=== PATIENT | male | born 1940 | race Caucasian/White ===

== ENCOUNTER → 2017-08-14 | Outpatient (CLI) | payer MEDICARE ==
[~2017-08-14] VITALS: Ht 160 cm; Wt 70.0 kg
[~2017-08-14] MED LIST: ASPI-891 PO; BIOT10004 PO; DABI150 PO; DONE10TA8 PO; FERSL PO; FLUO-191 PO; FURO20 PO; HYDR-3709 PO; INTRATHECAL PUMP IL; METO25 PO; MULT-1203 PO; OMEP20 PO; PHEN100C23 PO; SIMV-261 PO; SULF1TAB42 PO; VITAD1000 PO; ZINC30TA2 PO
[2017-08-14 10:54] VITALS: BP 128/63
== END | disposition home or self-care (01) ==
LOC: HBOWC 09:55
PROVIDERS: ATTEND Internal Medicine
DX: S81.801D Unspecified open wound, right lower leg, subsequent encounter (principal); I87.2 Venous insufficiency (chronic) (peripheral); F03.90 Unspecified dementia, unspecified severity, without behavioral disturbance, psychotic disturbance, mood disturbance, and anxiety; E11.22 Type 2 diabetes mellitus with diabetic chronic kidney disease; I12.9 Hypertensive chronic kidney disease with stage 1 through stage 4 chronic kidney disease, or unspecified chronic kidney disease; N18.2 Chronic kidney disease, stage 2 (mild); F32.9 Major depressive disorder, single episode, unspecified; E11.51 Type 2 diabetes mellitus with diabetic peripheral angiopathy without gangrene; Z87.891 Personal history of nicotine dependence; Z96.653 Presence of artificial knee joint, bilateral; Z95.0 Presence of cardiac pacemaker; X58.XXXD Exposure to other specified factors, subsequent encounter
CPT/HCPCS: 97597; 97598

== ENCOUNTER → 2017-08-21 | Outpatient (CLI) | payer MEDICARE ==
[~2017-08-21] MED LIST changes: +CIPR-278 PO; +DOXY100C PO
[2017-08-21 10:54] VITALS: BP 145/59
== END | disposition home or self-care (01) ==
LOC: HBOWC 10:15
PROVIDERS: ATTEND Internal Medicine
DX: S81.801D Unspecified open wound, right lower leg, subsequent encounter (principal); E11.22 Type 2 diabetes mellitus with diabetic chronic kidney disease; N18.4 Chronic kidney disease, stage 4 (severe); I12.9 Hypertensive chronic kidney disease with stage 1 through stage 4 chronic kidney disease, or unspecified chronic kidney disease; F32.9 Major depressive disorder, single episode, unspecified; E11.51 Type 2 diabetes mellitus with diabetic peripheral angiopathy without gangrene; F03.90 Unspecified dementia, unspecified severity, without behavioral disturbance, psychotic disturbance, mood disturbance, and anxiety; E44.0 Moderate protein-calorie malnutrition; I87.8 Other specified disorders of veins; Z87.891 Personal history of nicotine dependence; Z96.653 Presence of artificial knee joint, bilateral; Z95.0 Presence of cardiac pacemaker; X58.XXXD Exposure to other specified factors, subsequent encounter
CPT/HCPCS: 11042

== ENCOUNTER → 2017-08-28 | Outpatient (CLI) | payer MEDICARE ==
[~2017-08-28] MED LIST changes: +LIDOCAINE HCL 2% 5 ML JELLY TP ONE
[2017-08-28 10:21] VITALS: BP 125/57
== END | disposition home or self-care (01) ==
LOC: HBOWC 09:27
PROVIDERS: ATTEND Internal Medicine
DX: S81.801D Unspecified open wound, right lower leg, subsequent encounter (principal); F03.90 Unspecified dementia, unspecified severity, without behavioral disturbance, psychotic disturbance, mood disturbance, and anxiety; I87.2 Venous insufficiency (chronic) (peripheral); F32.9 Major depressive disorder, single episode, unspecified; E11.51 Type 2 diabetes mellitus with diabetic peripheral angiopathy without gangrene; E11.22 Type 2 diabetes mellitus with diabetic chronic kidney disease; I12.9 Hypertensive chronic kidney disease with stage 1 through stage 4 chronic kidney disease, or unspecified chronic kidney disease; N18.4 Chronic kidney disease, stage 4 (severe); Z87.891 Personal history of nicotine dependence; Z96.653 Presence of artificial knee joint, bilateral; Z99.2 Dependence on renal dialysis; X58.XXXD Exposure to other specified factors, subsequent encounter
CPT/HCPCS: 97597; 97598

== ENCOUNTER → 2017-09-04 | Outpatient (CLI) | payer MEDICARE ==
[~2017-09-04] MED LIST changes: -CIPR-278 PO; -DOXY100C PO; -LIDOCAINE HCL 2% 5 ML JELLY TP ONE; +LIDOCAINE HCL 4% 50 ML SOLUTION TP ONE; +SODIUM HYPOCHLORITE 0.25% [HALF STRENGTH] 473 ML SOLUTION TP ONE
[2017-09-04 13:40] VITALS: BP 126/54
== END | disposition home or self-care (01) ==
LOC: HBOWC 09:51
PROVIDERS: ATTEND Internal Medicine
DX: S81.801D Unspecified open wound, right lower leg, subsequent encounter (principal); E11.51 Type 2 diabetes mellitus with diabetic peripheral angiopathy without gangrene; E11.22 Type 2 diabetes mellitus with diabetic chronic kidney disease; I12.9 Hypertensive chronic kidney disease with stage 1 through stage 4 chronic kidney disease, or unspecified chronic kidney disease; N18.4 Chronic kidney disease, stage 4 (severe); I87.2 Venous insufficiency (chronic) (peripheral); F32.9 Major depressive disorder, single episode, unspecified; F03.90 Unspecified dementia, unspecified severity, without behavioral disturbance, psychotic disturbance, mood disturbance, and anxiety; Z87.891 Personal history of nicotine dependence; Z96.653 Presence of artificial knee joint, bilateral; Z99.2 Dependence on renal dialysis; X58.XXXD Exposure to other specified factors, subsequent encounter
CPT/HCPCS: 11042; 97597; 97598

== ENCOUNTER → 2017-09-18 | Outpatient (CLI) | payer MEDICARE ==
[~2017-09-18] MED LIST changes: +CIPR-278 PO; +DOXY100C PO; -SODIUM HYPOCHLORITE 0.25% [HALF STRENGTH] 473 ML SOLUTION TP ONE
[2017-09-18 09:31] VITALS: BP 126/73
== END | disposition home or self-care (01) ==
LOC: HBOWC 08:43
PROVIDERS: ATTEND Internal Medicine
DX: S81.801D Unspecified open wound, right lower leg, subsequent encounter (principal); S01.302D Unspecified open wound of left ear, subsequent encounter; E11.22 Type 2 diabetes mellitus with diabetic chronic kidney disease; I12.9 Hypertensive chronic kidney disease with stage 1 through stage 4 chronic kidney disease, or unspecified chronic kidney disease; N18.4 Chronic kidney disease, stage 4 (severe); F32.9 Major depressive disorder, single episode, unspecified; E11.51 Type 2 diabetes mellitus with diabetic peripheral angiopathy without gangrene; F03.90 Unspecified dementia, unspecified severity, without behavioral disturbance, psychotic disturbance, mood disturbance, and anxiety; I87.2 Venous insufficiency (chronic) (peripheral); Z87.891 Personal history of nicotine dependence; Z96.653 Presence of artificial knee joint, bilateral; Z99.2 Dependence on renal dialysis; X58.XXXD Exposure to other specified factors, subsequent encounter
CPT/HCPCS: 87070; 87205; 97597; 97598

== ENCOUNTER → 2017-09-25 | Outpatient (CLI) | payer MEDICARE ==
[~2017-09-25] MED LIST changes: -SULF1TAB42 PO
[2017-09-25 11:00] VITALS: BP 120/61
== END | disposition home or self-care (01) ==
LOC: HBOWC 10:18
PROVIDERS: ATTEND Internal Medicine
DX: S81.801D Unspecified open wound, right lower leg, subsequent encounter (principal); S01.302D Unspecified open wound of left ear, subsequent encounter; E11.22 Type 2 diabetes mellitus with diabetic chronic kidney disease; I12.9 Hypertensive chronic kidney disease with stage 1 through stage 4 chronic kidney disease, or unspecified chronic kidney disease; N18.4 Chronic kidney disease, stage 4 (severe); F32.9 Major depressive disorder, single episode, unspecified; E11.51 Type 2 diabetes mellitus with diabetic peripheral angiopathy without gangrene; F03.90 Unspecified dementia, unspecified severity, without behavioral disturbance, psychotic disturbance, mood disturbance, and anxiety; I87.2 Venous insufficiency (chronic) (peripheral); Z87.891 Personal history of nicotine dependence; Z96.653 Presence of artificial knee joint, bilateral; Z99.2 Dependence on renal dialysis; X58.XXXD Exposure to other specified factors, subsequent encounter
CPT/HCPCS: 97597; 97598

== ENCOUNTER → 2017-10-02 | Outpatient (CLI) | payer MEDICARE ==
[~2017-10-02] MED LIST changes: -LIDOCAINE HCL 4% 50 ML SOLUTION TP ONE
[2017-10-02 10:43] VITALS: BP 144/58
== END | disposition home or self-care (01) ==
LOC: HBOWC 10:03
PROVIDERS: ATTEND Internal Medicine
DX: S81.801D Unspecified open wound, right lower leg, subsequent encounter (principal); S01.302D Unspecified open wound of left ear, subsequent encounter; E11.22 Type 2 diabetes mellitus with diabetic chronic kidney disease; I12.9 Hypertensive chronic kidney disease with stage 1 through stage 4 chronic kidney disease, or unspecified chronic kidney disease; N18.4 Chronic kidney disease, stage 4 (severe); F32.9 Major depressive disorder, single episode, unspecified; E11.51 Type 2 diabetes mellitus with diabetic peripheral angiopathy without gangrene; F03.90 Unspecified dementia, unspecified severity, without behavioral disturbance, psychotic disturbance, mood disturbance, and anxiety; I87.2 Venous insufficiency (chronic) (peripheral); Z87.891 Personal history of nicotine dependence; Z96.653 Presence of artificial knee joint, bilateral; Z99.2 Dependence on renal dialysis; X58.XXXD Exposure to other specified factors, subsequent encounter
CPT/HCPCS: 97597

== ENCOUNTER → 2017-10-30 | Outpatient (CLI) | payer MEDICARE ==
[~2017-10-30] MED LIST changes: +AMOX1TAB16 PO; +AZIT500T4 PO; +CLOP75 PO; +LIDOCAINE HCL 4% 50 ML SOLUTION TP ONE
[2017-10-30 09:59] VITALS: BP 141/63
== END | disposition home or self-care (01) ==
LOC: HBOWC 09:41
PROVIDERS: ATTEND Internal Medicine
DX: S81.801D Unspecified open wound, right lower leg, subsequent encounter (principal); E11.22 Type 2 diabetes mellitus with diabetic chronic kidney disease; I12.9 Hypertensive chronic kidney disease with stage 1 through stage 4 chronic kidney disease, or unspecified chronic kidney disease; N18.4 Chronic kidney disease, stage 4 (severe); F32.9 Major depressive disorder, single episode, unspecified; E11.51 Type 2 diabetes mellitus with diabetic peripheral angiopathy without gangrene; F03.90 Unspecified dementia, unspecified severity, without behavioral disturbance, psychotic disturbance, mood disturbance, and anxiety; I87.2 Venous insufficiency (chronic) (peripheral); Z87.891 Personal history of nicotine dependence; Z96.653 Presence of artificial knee joint, bilateral; Z99.2 Dependence on renal dialysis; X58.XXXD Exposure to other specified factors, subsequent encounter
CPT/HCPCS: 11042; 11045

== ENCOUNTER → 2017-11-06 | Outpatient (CLI) | payer MEDICARE ==
[~2017-11-06] MED LIST changes: -ASPI-891 PO; -CIPR-278 PO; -DOXY100C PO; +LIDOCAINE HCL 2% 5 ML JELLY TP ONE; -LIDOCAINE HCL 4% 50 ML SOLUTION TP ONE
[2017-11-06 10:23] VITALS: BP 116/75
== END | disposition home or self-care (01) ==
LOC: HBOWC 09:59
PROVIDERS: ATTEND Internal Medicine
DX: S81.801D Unspecified open wound, right lower leg, subsequent encounter (principal); S01.302D Unspecified open wound of left ear, subsequent encounter; E11.22 Type 2 diabetes mellitus with diabetic chronic kidney disease; I12.9 Hypertensive chronic kidney disease with stage 1 through stage 4 chronic kidney disease, or unspecified chronic kidney disease; N18.4 Chronic kidney disease, stage 4 (severe); F32.9 Major depressive disorder, single episode, unspecified; E11.51 Type 2 diabetes mellitus with diabetic peripheral angiopathy without gangrene; F03.90 Unspecified dementia, unspecified severity, without behavioral disturbance, psychotic disturbance, mood disturbance, and anxiety; I87.2 Venous insufficiency (chronic) (peripheral); Z87.891 Personal history of nicotine dependence; Z96.653 Presence of artificial knee joint, bilateral; Z99.2 Dependence on renal dialysis; X58.XXXD Exposure to other specified factors, subsequent encounter
CPT/HCPCS: 11042; 11045

== ENCOUNTER → 2017-11-13 | Outpatient (CLI) | payer MEDICARE ==
[~2017-11-13] MED LIST changes: -LIDOCAINE HCL 2% 5 ML JELLY TP ONE
[2017-11-13 10:18] VITALS: BP 132/61
== END | disposition home or self-care (01) ==
LOC: HBOWC 09:53
PROVIDERS: ATTEND Internal Medicine
DX: S81.801D Unspecified open wound, right lower leg, subsequent encounter (principal); S01.302D Unspecified open wound of left ear, subsequent encounter; E11.22 Type 2 diabetes mellitus with diabetic chronic kidney disease; I12.9 Hypertensive chronic kidney disease with stage 1 through stage 4 chronic kidney disease, or unspecified chronic kidney disease; N18.4 Chronic kidney disease, stage 4 (severe); F32.9 Major depressive disorder, single episode, unspecified; E11.51 Type 2 diabetes mellitus with diabetic peripheral angiopathy without gangrene; F03.90 Unspecified dementia, unspecified severity, without behavioral disturbance, psychotic disturbance, mood disturbance, and anxiety; I87.2 Venous insufficiency (chronic) (peripheral); Z87.891 Personal history of nicotine dependence; Z96.653 Presence of artificial knee joint, bilateral; Z99.2 Dependence on renal dialysis; X58.XXXD Exposure to other specified factors, subsequent encounter
CPT/HCPCS: 11042; 11045

== ENCOUNTER → 2017-11-20 | Outpatient (CLI) | payer MEDICARE ==
[~2017-11-20] MED LIST changes: +LIDOCAINE HCL 2% 5 ML JELLY TP ONE
[2017-11-20 10:10] VITALS: BP 123/55
== END | disposition home or self-care (01) ==
LOC: HBOWC 09:59
PROVIDERS: ATTEND Internal Medicine
DX: S81.801D Unspecified open wound, right lower leg, subsequent encounter (principal); S01.302D Unspecified open wound of left ear, subsequent encounter; E11.22 Type 2 diabetes mellitus with diabetic chronic kidney disease; I12.9 Hypertensive chronic kidney disease with stage 1 through stage 4 chronic kidney disease, or unspecified chronic kidney disease; N18.4 Chronic kidney disease, stage 4 (severe); F32.9 Major depressive disorder, single episode, unspecified; E11.51 Type 2 diabetes mellitus with diabetic peripheral angiopathy without gangrene; F03.90 Unspecified dementia, unspecified severity, without behavioral disturbance, psychotic disturbance, mood disturbance, and anxiety; I87.2 Venous insufficiency (chronic) (peripheral); Z87.891 Personal history of nicotine dependence; Z96.653 Presence of artificial knee joint, bilateral; Z99.2 Dependence on renal dialysis; X58.XXXD Exposure to other specified factors, subsequent encounter
CPT/HCPCS: 11042

== ENCOUNTER → 2017-12-04 | Outpatient (CLI) | payer MEDICARE ==
[~2017-12-04] MED LIST changes: -LIDOCAINE HCL 2% 5 ML JELLY TP ONE
[2017-12-04 10:15] VITALS: BP 133/60
== END | disposition home or self-care (01) ==
LOC: HBOWC 10:04
PROVIDERS: ATTEND Podiatrist
DX: S81.801D Unspecified open wound, right lower leg, subsequent encounter (principal); E11.22 Type 2 diabetes mellitus with diabetic chronic kidney disease; I12.9 Hypertensive chronic kidney disease with stage 1 through stage 4 chronic kidney disease, or unspecified chronic kidney disease; N18.4 Chronic kidney disease, stage 4 (severe); F32.9 Major depressive disorder, single episode, unspecified; E11.51 Type 2 diabetes mellitus with diabetic peripheral angiopathy without gangrene; F03.90 Unspecified dementia, unspecified severity, without behavioral disturbance, psychotic disturbance, mood disturbance, and anxiety; I87.2 Venous insufficiency (chronic) (peripheral); Z87.891 Personal history of nicotine dependence; Z96.653 Presence of artificial knee joint, bilateral; Z99.2 Dependence on renal dialysis; X58.XXXD Exposure to other specified factors, subsequent encounter
CPT/HCPCS: 11042

== ENCOUNTER → 2017-12-25 | Outpatient (CLI) | payer MEDICARE ==
[~2017-12-25] MED LIST changes: -AMOX1TAB16 PO; -AZIT500T4 PO
[2017-12-25 10:16] VITALS: BP 145/63
== END | disposition home or self-care (01) ==
LOC: HBOWC 10:04
PROVIDERS: ATTEND Internal Medicine
DX: S81.801D Unspecified open wound, right lower leg, subsequent encounter (principal); E11.22 Type 2 diabetes mellitus with diabetic chronic kidney disease; I12.9 Hypertensive chronic kidney disease with stage 1 through stage 4 chronic kidney disease, or unspecified chronic kidney disease; N18.4 Chronic kidney disease, stage 4 (severe); F32.9 Major depressive disorder, single episode, unspecified; E11.51 Type 2 diabetes mellitus with diabetic peripheral angiopathy without gangrene; F03.90 Unspecified dementia, unspecified severity, without behavioral disturbance, psychotic disturbance, mood disturbance, and anxiety; I87.2 Venous insufficiency (chronic) (peripheral); Z87.891 Personal history of nicotine dependence; Z96.653 Presence of artificial knee joint, bilateral; Z99.2 Dependence on renal dialysis; X58.XXXD Exposure to other specified factors, subsequent encounter

== ENCOUNTER → 2018-01-15 | Outpatient (CLI) | payer MEDICARE ==
[2018-01-15 10:44] VITALS: BP 105/56
== END | disposition home or self-care (01) ==
LOC: HBOWC 09:58
PROVIDERS: ATTEND Internal Medicine
DX: S81.801D Unspecified open wound, right lower leg, subsequent encounter (principal); E11.22 Type 2 diabetes mellitus with diabetic chronic kidney disease; I12.9 Hypertensive chronic kidney disease with stage 1 through stage 4 chronic kidney disease, or unspecified chronic kidney disease; N18.4 Chronic kidney disease, stage 4 (severe); F32.9 Major depressive disorder, single episode, unspecified; E11.51 Type 2 diabetes mellitus with diabetic peripheral angiopathy without gangrene; F03.90 Unspecified dementia, unspecified severity, without behavioral disturbance, psychotic disturbance, mood disturbance, and anxiety; I87.2 Venous insufficiency (chronic) (peripheral); Z87.891 Personal history of nicotine dependence; Z96.653 Presence of artificial knee joint, bilateral; Z99.2 Dependence on renal dialysis; X58.XXXD Exposure to other specified factors, subsequent encounter